=== PATIENT | male | born 1980 | race Caucasian/White ===

== ENCOUNTER → 2019-08-05 | Outpatient (CLI) | payer BC ==
--- NOTE | 2019-08-05 09:25 | Diagnostic Imaging Report ---
INDICATION: Calculus of the ureter, history of stones, hematuria. TECHNIQUE: 2 supine view of the abdomen 8:32 AM CORRELATION STUDY: None FINDINGS: Approximately 9 x 3 mm slightly fragmented appearing calcification projects adjacent to the L3-L4 transverse processes. While nonspecific could be along the course of the right ureter. Otherwise, no definitive calcification of the renal silhouettes and/or expected course of either ureter. Bowel gas pattern appears non-obstructive with mild severity fecal retention. IMPRESSION: 1. Calcifications in the right mid abdomen. Possibility of a prominent calcification in the right ureter is not excluded. If further assessment is desired, renal colic CT imaging would be recommended. Dictated by: Dictated on workstation # [id number]
== END ==
LOC: RAD FS 08:25
PROVIDERS: ATTEND Urology
DX: N20.1 Calculus of ureter (principal); Z87.442 Personal history of urinary calculi
CPT/HCPCS: 74018

== ENCOUNTER → 2019-10-06 | Outpatient (CLI) | payer BC ==
--- NOTE | 2019-10-06 14:17 | Diagnostic Imaging Report ---
INDICATION: Right ureteral calculus, follow-up. Time of exam 1:43 PM Correlation is made with prior exam from 08/05/2019. Previously noted calcific density lying adjacent to the L3-L4 transverse processes is not seen on today's study. No definite urinary tract calculi are seen. The bowel gas pattern is unremarkable. IMPRESSION: No urinary tract calculi are identified on today's study. Dictated by: Dictated on workstation # [id number]
== END ==
LOC: RAD FS 13:40
PROVIDERS: ATTEND Urology
DX: N20.1 Calculus of ureter (principal)
CPT/HCPCS: 74018